=== PATIENT | female | born 1945 | race Caucasian/White ===

== ENCOUNTER 2023-07-14 15:54 | Emergency (ER) | payer OTHER ==
[~2023-07-14] VITALS: Ht 162.5 cm; Wt 76.2 kg
== END 2023-07-14 19:30 | disposition left against medical advice (07) ==
LOC: ED 15:54
DX: S09.90XA Unspecified injury of head, initial encounter (principal); Z53.21 Procedure and treatment not carried out due to patient leaving prior to being seen by health care provider; W19.XXXA Unspecified fall, initial encounter; Y93.89 Activity, other specified; Y92.89 Other specified places as the place of occurrence of the external cause; Y99.8 Other external cause status